=== PATIENT | female | born 1995 | race African-American/Black ===

== ENCOUNTER → 2017-09-28 | Day surgery (SDC) | payer OTHER ==
--- NOTE | 2017-10-02 13:17 | PATH ---
Surgical Pathology Report Patient Name: MARICRUZ YUEN [facility]. Rec. #: [id number] /Age/Gender: 1995 (Age: 22) / F Account: [id number] Location: Taken: 09/28/2017 Received: 09/28/2017 Reported: 10/02/2017 Physicians: Cady Desouza M.D. Specimen(s) Received LEFT BREAST CORE BIOPSY 6:00, 2CM FN Clinical History Ultrasound findings: Suspicious Final Diagnosis LEFT BREAST, 6:00 2 CM FROM NIPPLE, ULTRASOUND GUIDED NEEDLE CORE BIOPSY: BENIGN BREAST TISSUE WITH INFLAMED GRANULATION TISSUE, FOCAL GRANULOMA FORMATION, AND PERIDLOBULAR CHRONIC INFLAMMATION CONSISTENT WITH GRANULOMATOUS MASTITIS. ACID FAST AND FUNGAL (PAS) STAINS ARE NEGATIVE. Electronically Signed Lyle Abel M.D. Gross Description Received in formalin labeled "left breast 6:00, 2 CMFN," is a 2.0 x 1.8 x 0.3 cm aggregate of english-yellow, irregular to cylindrical portions of fibroadipose tissue. The formalin is filtered and the specimen is entirely submitted in one cassette. Time to formalin fixation: 2 minutes Total formalin fixation time: Approximately 9 hours. 09/28/201709/28/2017
== END | disposition home or self-care (01) ==
LOC: FRADUS-SUR 12:31
PROVIDERS: ATTEND Internal Medicine
PROC: 0HBU3ZX Excision of Left Breast, Percutaneous Approach, Diagnostic (ICD-10-PCS; principal; 2017-09-28)
DX: N63.20 Unspecified lump in the left breast, unspecified quadrant (principal); L92.8 Other granulomatous disorders of the skin and subcutaneous tissue
CPT/HCPCS: 19083; 87899; 88305-TC; 88312-TC; A4648